=== PATIENT | female | born 1945 | race Caucasian/White ===

== ENCOUNTER → 2022-06-15 13:21 | Outpatient (REF) | payer MEDICARE, OTHER, SELFPAY ==
--- NOTE | 2022-06-15 | HM_ITS ---
Conclusion: 1. Patient was monitored for total period of 2 days and 1 hour 2. Baseline was normal sinus rhythm with average heart of 74 beats per minute 3. No significant pauses or bradycardia noted 4. Total of 3000 aura 98 PACs accounting for 1.5% of total beats account for frequent PACs 5. Rare PVCs noted 6. No patient reported events MTDD
== END ==
LOC: HO.CARD 13:21
PROVIDERS: Visit Provider Psychiatry & Neurology Neurology
DX: R55 Syncope and collapse (principal)
CPT/HCPCS: 93226; 93242

== ENCOUNTER → 2022-10-29 12:58 | Outpatient (BNVA) | payer MEDICARE, OTHER, SELFPAY | PROVIDERS: Visit Provider Internal Medicine | DX: M48.062 Spinal stenosis, lumbar region with neurogenic claudication (principal) | CPT/HCPCS: 99202 ==